=== PATIENT | male | born 1985 | race Caucasian/White ===

== ENCOUNTER 2016-12-11 23:25 | Emergency (ER) | payer SELFPAY ==
[2016-12-11 23:32] VITALS: BP 141/81; PULSE 99; TEMP 98.5; BMI 31.3
--- NOTE | 2016-12-11 23:46 | PDOC ---
History of Present Illness - General History Source: Patient Exam Limitations: No Limitations - History of Present Illness Initial Comments: 12/11/16 23:52 The patient is a 30 year old male with no significant past medical history who presents to the ED with few days of penile swelling with itching and dysuria. Patient reports he is unable to retract his foreskin as a result of penile redness, pain and inflamed. He also noted yellow discharge. Patient denies hematuria, urgency, or frequency. He states he is in a monogamous relationship with his and denies any extramarital affairs. Patient also denies any pmhx of diabetes or family h/o of diabetes. Patient denies any trauma to the area. The patient denies fever, chills, cough, SOB, chest pain, and palpitations. The patient denies abdominal pain, nausea, vomiting, and diarrhea. Allergies: NKDA Social History: No alcohol, tobacco, or drug use reported. Past Surgical History: None reported PCP: None reported <Kelly Mcclelland - Last Filed: 12/12/16 02:06> - General History Source: Patient <Carlos Pedroza - Last Filed: 12/12/16 02:17> - General Chief Complaint: Pain Stated Complaint: RASH Time Seen by Provider: 12/11/16 23:39 Past History <Kelly Mcclelland - Last Filed: 12/12/16 02:06> - Psycho/Social/Smoking Cessation Hx Suicidal Ideation: No Smoking History: Never smoked Have you smoked in the past 12 months: No Number of Cigarettes Smoked Daily: 0 Information on smoking cessation initiated: No Hx Alcohol Use: No Drug/Substance Use Hx: No <Carlos Pedroza - Last Filed: 12/12/16 02:17> - Past Medical History Allergies/Adverse Reactions: Allergies Allergy/AdvReac Type Severity Reaction Status Date / Time No Known Allergies Allergy Verified 12/11/16 23:29 Home Medications: Ambulatory Orders Clotrimazole [Lotrimin AF] 24 gm TP TID #1 cream..g. 12/12/16 Review of Systems - Review of Systems Able to Perform ROS?: Yes Comments:: 12/11/16 23:53 CONSTITUTIONAL: Absent: fever, no chills, no fatigue EYES: Absent: visual changes ENT: Absent: ear pain, no sore throat CARDIOVASCULAR: Absent: chest pain, no palpitations RESPIRATORY: Absent: cough, no SOB GI: Absent: abdominal pain, no nausea, no vomiting, no constipation, no diarrhea GENITOURINARY: +penile swelling with pain, redness and inflamed, and dysuria Absent: no frequency, no hematuria MUSKULOSKELETAL: Absent: back pain, no arthralgia, no myalgia SKIN: Absent: rash NEURO: Absent: headache <Kelly Mcclelland - Last Filed: 12/12/16 02:06> *Physical Exam - Vital Signs Last Vital Signs Temp Pulse Resp BP Pulse Ox 98.5 F 99 H 14 141/81 98 12/11/16 23:29 12/11/16 23:29 12/11/16 23:29 12/11/16 23:29 12/11/16 23:29 - Physical Exam Comments: 12/11/16 23:53 GENERAL: Well-appearing, well-nourished. No apparent distress. HEENT: Normocephalic, atraumatic. PERRL, EOM intact. CARDIOVASCULAR: Normal S1, S2. Regular rate and rhythm. PULMONARY: Clear to auscultation bilaterally. ABDOMEN: Soft, non-distended, non-tender. : Foreskin is inflamed, erythematous, tender and edematous. Unable to retract over the glands. Yellow discharge noted. EXTREMITIES: Normal ROM in all four extremities. No gross deformities. SKIN: Warm, dry. No rash NEUROLOGICAL: No focal neurological deficits. <Kelly Mcclelland - Last Filed: 12/12/16 02:06> - Vital Signs Last Vital Signs Temp Pulse Resp BP Pulse Ox 98.5 F 99 H 14 141/81 98 12/11/16 23:29 12/11/16 23:29 12/11/16 23:29 12/11/16 23:29 12/11/16 23:29 <Carlos Pedroza - Last Filed: 12/12/16 02:17> ED Treatment Course - LABORATORY CBC & Chemistry Diagram: 12/12/16 00:15 12/12/16 00:15 - RADIOLOGY Radiograph Interpretation: 12/12/16 02:06 EXAM: Ultrasound abdomen limited, right upper quadrant and limited abdominal duplex Reviewed by Imaging stonework tracer: FINDINGS: Right upper quadrant ultrasound: The liver is fatty, without mass or biliary duct dilation. There is a 16 mm gallstone without secondary findings for cholecystitis. The CBD is not dilated and measures3 millimeters in diameter. Right kidney measures 11.7centimeters in length and is unremarkable. The visualized aorta and IVC are normal. Pancreas is mostly obscured but grossly normal. Abdominal duplex: The main portal vein demonstrates normal hepatopedal flow. IMPRESSION: Gallstone without secondary findings of cholecystitis. Fatty liver. <Kelly Mcclelland - Last Filed: 12/12/16 02:06> - LABORATORY CBC & Chemistry Diagram: 12/12/16 00:15 12/12/16 00:15 <Carlos Pedroza - Last Filed: 12/12/16 02:17> Medical Decision Making - Medical Decision Making 12/12/16 00:07 Dr. Pedroza: The scribe's documentation has been prepared under my direction and personally reviewed by me in its entirery. I confirm that the note above accurately reflects all work, treatment, procedures, and medical decision making performed by me. Accucheck was 213, NO history of DM. will check lab work. 12/12/16 02:11 LFT's elevated. Pt found to hav gall stone without signs of cholecystitis. Pt to follow up internal medicine for education of possible new onset DM <Carlos Pedroza - Last Filed: 12/12/16 02:17> *DC/Admit/Observation/Transfer - Attestations Scribe Attestion: 12/11/16 23:53 Documentation prepared by Kelly Mcclelland, acting as ophthalmic medical assistant for Carlos Pedroza MD <Kelly Mcclelland - Last Filed: 12/12/16 02:06> - Discharge Dispostion Admit: No <Carlos Pedroza - Last Filed: 12/12/16 02:17> Diagnosis at time of Disposition: Diabetes mellitus, new onset, Balanitis, Elevated transaminase level - Discharge Dispostion Disposition: HOME Condition at time of disposition: Stable - Prescriptions Prescriptions: Clotrimazole [Lotrimin AF] 24 gm TP TID #1 cream..g. - Referrals Referrals: Mayela Aburto MD [Staff Physician] - Wesley Treadwell MD [Staff Physician] - Rian Napoles MD [Staff Physician] - - Patient Instructions Printed Discharge Instructions: DI for Balanitis, DI for Diabetes Type 2, Liver Function Tests Print Language: MONGOLIAN
[2016-12-12] MEDS ORDERED: FLUCONAZOLE 100 MG TABLET (UD) PO ONE (00:06)
[2016-12-12] MEDS ORDERED: FLUCONAZOLE 100 MG TABLET (UD) ONE (00:12)
[2016-12-12 00:15] LABS: URINE APPEARANCE CLEAR; URINE BILIRUBIN NEGATIVE (NEGATIVE); URINE BLOOD NEGATIVE (NEGATIVE); URINE COLOR YELLOW; URINE GLUCOSE (UA) 3+ (NEGATIVE); URINE KETONE TRACE (NEGATIVE); URINE NITRITE NEGATIVE (NEGATIVE); URINE UROBILINOGEN NEGATIVE E.U./dl (0.2-1.0)
[2016-12-12 00:17] LABS: URINE LEUK ESTERASE TRACE (NEGATIVE); URINE PROTEIN 1+ (NEGATIVE)
[2016-12-12 00:29] LABS: BASOPHIL 0.6 % (0-2.0); EOSINOPHIL 3.5 % (0-4.5); MCH 29.7 pg (25.7-33.7); MCHC 34.9 g/dl (32.0-35.9); MEAN CELL VOLUME 85.1 fl (80-96); MEAN PLT VOLUME 8.3 fl (7.5-11.1); NEUTROPHILS 50.9 % (42.8-82.8); PLATELET COUNT 269 K/MM3 (134-434); RDW 13.3 % (11.9-15.9); WHITE BLOOD COUNT 10.4 K/mm3 (4.0-10.0)
[2016-12-12 00:32] LABS: URINE BACTERIA RARE /hpf (NONE SEEN); URINE MUCUS FEW; URINE RBC 8 /hpf (0-3); URINE WBC 34 /hpf (3-5)
[2016-12-12 01:07] LABS: ACETONE SERUM NEGATIVE (NEGATIVE)
[2016-12-12 01:15] LABS: ALBUMIN 4.3 g/dl (3.4-5.0); ANION GAP 11 (8-16); BILIRUBIN,TOTAL 0.6 mg/dL (0.2-1.0); CALCIUM 9.4 mg/dL (8.5-10.1); CO2 29 mmol/L (21-32); GLUCOSE,RANDOM 182 mg/dL (74-106); MAGNESIUM 2.1 mg/dL (1.8-2.4); SGOT/AST 63 U/L (15-37); SGPT/ALT 109 U/L (12-78); TOT PROT 8.7 g/dl (6.4-8.2)
[2016-12-12 01:19] LABS: ALK PHOS 118 U/L (45-117)
--- NOTE | 2016-12-12 01:46 | PDOC ---
*Physical Exam - Vital Signs Last Vital Signs Temp Pulse Resp BP Pulse Ox 98.5 F 99 H 14 141/81 98 12/11/16 23:29 12/11/16 23:29 12/11/16 23:29 12/11/16 23:29 12/11/16 23:29 ED Treatment Course - LABORATORY CBC & Chemistry Diagram: 12/12/16 00:15 12/12/16 00:15 - ADDITIONAL ORDERS Additional order review: Laboratory Results 12/12/16 12/12/16 12/11/16 00:15 00:05 23:53 Sodium 141 Potassium 3.6 Chloride 101 Carbon Dioxide 29 Anion Gap 11 BUN 15 Creatinine 1.0 Creat Clearance w eGFR > 60 POC Glucometer [phone] Random Glucose 182 H Calcium 9.4 Magnesium 2.1 Total Bilirubin 0.6 AST 63 H ALT 109 H Alkaline Phosphatase 118 H Total Protein 8.7 H Albumin 4.3 Urine Color Yellow Urine Appearance Clear Urine pH 5.0 Ur Specific [place] 1.025 Urine Protein 1+ H Urine Glucose (UA) 3+ H Urine Ketones Trace H Urine Blood Negative Urine Nitrite Negative Urine Bilirubin Negative Urine Urobilinogen Negative Ur Leukocyte Esterase Trace H Urine RBC 8 Urine WBC 34 Ur Epithelial Cells Rare Urine Bacteria Rare Urine Mucus Few Acetone, Qual Negative 12/12/16 12/11/16 00:15 23:53 RBC 5.95 H MCV 85.1 MCHC 34.9 RDW 13.3 MPV 8.3 Neutrophils % 50.9 Lymphocytes % 36.8 Monocytes % 8.2 Eosinophils % 3.5 Basophils % 0.6 POC Glucometer [phone] - RADIOLOGY Radiology Studies Ordered: Category Date Time Status ABDOMEN US -LIMITED [US] Stat Ultrasound 12/12/16 01:25 Ordered - Medications Given in the ED: ED Medications Discontinued Medications Generic Name Dose Route Start Last Admin Trade Name Freq PRN Reason Stop Dose Admin Fluconazole 200 mg 12/12/16 00:06 12/12/16 00:25 Diflucan - PO 12/12/16 00:07 200 mg ONCE ONE Administration Medical Decision Making - Medical Decision Making 12/12/16 01:46 agree with care from JANEL Coleman
== END 2016-12-12 02:27 | disposition home or self-care (01) ==
LOC: JER 23:25
DX: A54.09 Other gonococcal infection of lower genitourinary tract (principal); E11.9 Type 2 diabetes mellitus without complications; K80.20 Calculus of gallbladder without cholecystitis without obstruction
CPT/HCPCS: 36415; 76705-TC; 80053; 81003; 81015; 82009; 83735; 85025; 87086; 99283-25